=== PATIENT | male | born 1995 | race Caucasian/White ===

== ENCOUNTER 2016-06-15 13:02 | Emergency (ER) | payer BC ==
[~2016-06-15] VITALS: Ht 175.3 cm; Wt 83.5 kg
[2016-06-15 13:08] VITALS: TEMP 36.5; Ht 175.3 cm; Wt 83.5 kg
[2016-06-15 13:45] LABS: URINE APPEARANCE CLEAR (CLEAR); URINE BILIRUBIN NEG (NEG); URINE COLOR DK YELLOW; URINE NITRITE NEG (NEG); URINE PH 6.5 (4.5-7.5); URINE SPECIFIC GRAVITY 1.027 (1.000-1.030); UROBILINOGEN NEG (NEG); ZZUR CULT IF INDIC CLEAN CATCH NO
[2016-06-15 13:46] LABS: MANUAL MICROSCOPIC REQUIRED? NO; REVIEW REQ? NO
[2016-06-15 14:12] LABS: BENZODIAZEPINE, URINE NEG (NEG); COCAINE,URINE NEG (NEG); PHENCYCLIDINE, URINE NEG (NEG)
[2016-06-15 14:13] LABS: BASO % 0.5 %; BASO ABS # 0.03 K/uL (0-0.2); COMPLETE YES; HEMATOCRIT 44.2 % (42-52); IG% 0.2 %; LYMPH % 43.2 %; LYMPH ABS # 2.39 K/uL (1.2-3.4); MEAN CELL VOLUME 81.4 fL (80-100); MEAN CORPUSCULAR HEMOGLOBIN 27.8 pg (25-34); MEAN CORPUSCULAR HGB CONC 34.2 g/dl (32-36); MEAN PLATELET VOLUME 9.4 fL (7.4-10.4); MONO % 5.6 %; NEUT % 46.5 %; PLATELET COUNT 246 K/uL (130-400); RED BLOOD COUNT 5.43 M/uL (4.7-6.1); WHITE BLOOD COUNT 5.53 K/uL (4.8-10.8)
[2016-06-15] MEDS ORDERED: ESCI1TAB6 PO (14:19)
[2016-06-15] MEDS ORDERED: ALPR-411 PO (14:19)
[2016-06-15 14:27] LABS: BUN/CREATININE RATIO 11.7 (10-20); CALCIUM 9.6 mg/dl (8.5-10.1); CREATININE 0.86 mg/dl (0.60-1.40); POTASSIUM 3.8 mmol/L (3.5-5.1)
[2016-06-15 14:31] LABS: ACETAMINOPHEN < 2 ug/ml (10-30)
[2016-06-15 14:37] LABS: ALB/GLOB RATIO 1.4 (0.9-2); THYROID STIMULATING HORMONE 1.29 uIu/ml (0.300-4.500)
[2016-06-15] MEDS ORDERED: LORAZEPAM 1 MG TAB SL STA (15:23)
[2016-06-15 16:38] VITALS: BP 144/97; PULSE 68; O2SAT 97
--- NOTE | 2016-06-15 19:22 | EMERGENCY ROOM VISIT NOTE ---
History Report prepared by Keisha: Lj Omer Under the Supervision of: Dr. Murali Rogers M.D. First contact with patient: 14:19 Chief Complaint: MENTAL HEALTH EVALUATION Stated Complaint: SEVERE ANXIETY History of Present Illness The patient is a 20 year old male who presents to the Emergency Room with complaints of worsening anxiety over the past three days. The patients current anxiety started with the new at [employer]. He believes that the current episode of anxiety can be attributed to his use of Lexapro 5 mg over the past month. He stopped taking it last night. He didn't feel this way when he was on Zoloft. He had Xanax 0.25 mg at 1130 today, which did not help. The patient uses marijuana frequently, which he says helps with his anxiety. His last use of marijuana was last night. He denies alcohol use. The patient states that he has never been this anxious before. The patient says he is anxious about everything. The patient has experienced anxiety and depression for one year now. 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 The patient denies suicidal or homicidal ideations. He called his psychiatrist yesterday and today but did not receive a call back yet. Source of History: patient Onset: three days Position: other (psyche) Quality: other (anxious) Timing: worsening Modifying Factors (Relieving): other (marijuana) Note: Patient denies suicidal or homicidal ideation. Review of Systems See HPI for pertinent positives & negatives. A total of 10 systems reviewed and were otherwise negative. Past Medical & Surgical Medical Problems: (1) Anxiety and depression (2) Laceration of scalp Family History No pertinent family history Social History Smoking Status: Never Smoker Drug Use: marijuana Occupation Status: [employer] student Current/Historical Medications Scheduled Escitalopram Oxalate (Lexapro), 5 MG PO DAILY Miscellaneous Medications Alprazolam (Xanax), 0.25 MG PO Allergies Coded Allergies: No Known Allergies (Unverified , 06/15/16) Physical Exam Vital Signs Date Time Temp Pulse Resp B/P Pulse Ox O2 Delivery O2 Flow Rate FiO2 06/15/16 16:38 68 16 144/97 97 06/15/16 15:15 86 18 150/91 96 Room Air 06/15/16 13:08 36.5 75 18 139/100 97 Room Air Physical Exam Constitutional: Vital signs reviewed. Eyes: Pupils are equal round reactive to light. Conjunctiva are noninjected. ENT: Pharynx is clear without erythema or exudate. Mucous membranes are moist. Neck supple without meningeal signs. Respiratory: Clear to auscultation bilaterally. Breath sounds are equal bilaterally. Cardiovascular: Regular rate and rhythm. No rubs or gallops. GI: Soft, nondistended and nontender. Bowel sounds are present. Musculoskeletal: No peripheral edema. Integumentary: No cyanosis. Neurological: The patient is awake and alert. No focal deficits. Psychiatric: Very anxious. Medical Decision & Procedures Laboratory Results 06/15/16 13:49 Red Blood Count 5.43, Mean Corpuscular Volume 81.4, Mean Corpuscular Hemoglobin 27.8, Mean Corpuscular Hemoglobin Concent 34.2, Mean Platelet Volume 9.4, Neutrophils (%) (Auto) 46.5, Lymphocytes (%) (Auto) 43.2, Monocytes (%) (Auto) 5.6, Eosinophils (%) (Auto) 4.0, Basophils (%) (Auto) 0.5, Neutrophils # (Auto) 2.57, Lymphocytes # (Auto) 2.39, Monocytes # (Auto) 0.31, Eosinophils # (Auto) 0.22, Basophils # (Auto) 0.03 06/15/16 13:49 Test 06/15/16 13:24 06/15/16 13:49 Urine Color DK YELLOW Urine Appearance CLEAR (CLEAR) Urine pH 6.5 (4.5-7.5) Urine Specific [place] 1.027 (1.000-1.030) Urine Protein NEG (NEG) Urine Glucose (UA) NEG (NEG) Urine Ketones NEG (NEG) Urine Occult Blood NEG (NEG) Urine Nitrite NEG (NEG) Urine Bilirubin NEG (NEG) Urine Urobilinogen NEG (NEG) Urine Leukocyte Esterase SMALL (NEG) Urine WBC (Auto) 5-10 /hpf (0-5) Urine RBC (Auto) 0-4 /hpf (0-4) Urine Hyaline Casts (Auto) 5-10 /lpf (0-5) Urine Epithelial Cells (Auto) 10-20 /lpf (0-5) Urine Bacteria (Auto) NEG (NEG) Urine Opiates Screen NEG (NEG) Urine Methadone, Qualitative NEG (NEG) Urine Barbiturates NEG (NEG) Urine Phencyclidine (PCP) Level NEG (NEG) Ur Amphetamine/Methamphetamine NEG (NEG) MDMA (Ecstasy) Screen NEG (NEG) Urine Benzodiazepines Screen NEG (NEG) Urine Cocaine Metabolite NEG (NEG) Urine Marijuana (THC) POS (NEG) White Blood Count 5.53 K/uL (4.8-10.8) Red Blood Count 5.43 M/uL (4.7-6.1) Hemoglobin 15.1 g/dL (14.0-18.0) Hematocrit 44.2 % (42-52) Mean Corpuscular Volume 81.4 fL (80-100) Mean Corpuscular Hemoglobin 27.8 pg (25-34) Mean Corpuscular Hemoglobin Concent 34.2 g/dl (32-36) Platelet Count 246 K/uL (130-400) Mean Platelet Volume 9.4 fL (7.4-10.4) Neutrophils (%) (Auto) 46.5 % Lymphocytes (%) (Auto) 43.2 % Monocytes (%) (Auto) 5.6 % Eosinophils (%) (Auto) 4.0 % Basophils (%) (Auto) 0.5 % Neutrophils # (Auto) 2.57 K/uL (1.4-6.5) Lymphocytes # (Auto) 2.39 K/uL (1.2-3.4) Monocytes # (Auto) 0.31 K/uL (0.11-0.59) Eosinophils # (Auto) 0.22 K/uL (0-0.5) Basophils # (Auto) 0.03 K/uL (0-0.2) RDW Standard Deviation 38.1 fL (36.4-46.3) RDW Coefficient of Variation 12.8 % (11.5-14.5) Immature Granulocyte % (Auto) 0.2 % Immature Granulocyte # (Auto) 0.01 K/uL (0.00-0.02) Anion Gap 9.0 mmol/L (3-11) Est Creatinine Clear Calc Drug Dose 138.2 ml/min Estimated GFR () 145.7 Estimated GFR (Non- 125.7 BUN/Creatinine Ratio 11.7 (10-20) Calcium Level 9.6 mg/dl (8.5-10.1) Total Bilirubin 0.8 mg/dl (0.2-1) Aspartate Amino Transf (AST/SGOT) 24 U/L (15-37) Alanine Aminotransferase (ALT/SGPT) 23 U/L (12-78) Alkaline Phosphatase 47 U/L (45-117) Total Protein 7.1 gm/dl (6.4-8.2) Albumin 4.1 gm/dl (3.4-5.0) Globulin 3.0 gm/dl (2.5-4.0) Albumin/Globulin Ratio 1.4 (0.9-2) Thyroid Stimulating Hormone (TSH) 1.290 uIu/ml (0.300-4.500) Salicylates Level < 1.7 mg/dl (2.8-20) Acetaminophen Level < 2 ug/ml (10-30) Ethyl Alcohol mg/dL < 3.0 mg/dl (0-3) Laboratory results as reviewed by me. Medications Administered Medications (Trade) Dose Ordered Sig/Uma Route Start Time Stop Time Status Last Admin Dose Admin Lorazepam (Ativan Tab) 1 mg NOW STAT SL 06/15/16 15:23 06/15/16 15:24 DC 06/15/16 15:30 1 MG ED Course 1450: The patient was evaluated in room C2b. A complete history and physical exam was performed. 1523: Ativan 1 mg SL. 1600: Reassessed the patient. He is feeling better and would like to go home. He will follow up next week. The patient is ready for discharge. Medical Decision This is a 20-year-old male who presents with severe anxiety. I did perform a limited focused review of portions of the patient's old chart on the electronic medical record. The patient has had no recent pertinent visits to this hospital. I did evaluate the patient as noted above. He is presenting with significant anxiety after starting the semester at school today. He has had a history of anxiety following a head injury about a year ago. He is prescribed Lexapro and Xanax by his psychiatrist. He did not have relief with Xanax today and presented here. He did stop taking his Lexapro yesterday because he thinks it might be contributing to his anxiety. I advised him not to stop taking his Lexapro until he spoke to his psychiatrist. I did treat the patient with Ativan 1 mg orally. I did review the patient's blood work as noted in the electronic medical record. I did review his urine drug screen which shows marijuana. The mental health block and case maker did evaluate the patient. He does not meet any criteria for hospitalization. She did give him referrals for a local psychiatrist and counselor. The patient stated he felt better on reexamination and wanted to go home. He stated that being in the ED made him more anxious. He was therefore discharged in good condition. Impression Primary Impression: Anxiety Scribe Attestation The scribe's documentation has been prepared under my direct and personally reviewed by me in its entirety. I confirm that the note above accurately reflects all work, treatment, procedures, and medical decision making performed by me. Departure Information Dispostion Home / Self-Care Referrals No Doctor, Assigned (PCP) Forms HOME CARE DOCUMENTATION FORM, IMPORTANT VISIT INFORMATION Patient Instructions A Signature Page, Alprazolam Oral tablet, Anxiety Body Response, My [facility] Additional Instructions You have been examined and treated today on an emergency basis only. This is not a substitute for, or an effort to provide, complete comprehensive medical care. It is impossible to recognize and treat all injuries or illnesses in a single emergency department visit. It is therefore important that you follow up closely with your psychiatrist and the counselor that the step finisher referred you to. Call as soon as possible for an appointment. Return for worsening symptoms or if you develop thoughts of hurting yourself or others, or any other concerning symptoms.
== END 2016-06-15 16:39 | disposition home or self-care (01) ==
LOC: C.EDB 13:03 → C.EDA 16:39
DX: F41.9 Anxiety disorder, unspecified (principal); F12.10 Cannabis abuse, uncomplicated; F32.9 Major depressive disorder, single episode, unspecified; Z79.899 Other long term (current) drug therapy

== ENCOUNTER 2016-07-03 01:00 | Emergency (ER) | payer BC ==
[~2016-07-03] VITALS: Ht 177.8 cm; Wt 72.1 kg
[~2016-07-03 01:00] MED LIST: ALPR-411 PO; ESCI1TAB6 PO
[2016-07-03 01:14] VITALS: Ht 177.8 cm; Wt 72.1 kg
[2016-07-03] MEDS ORDERED: OXYCODONE IR HOME PACK PO ONE (01:30)
[2016-07-03] MEDS ORDERED: OXYC1TAB3 PO (01:31)
[2016-07-03 01:51] VITALS: BP 126/78; PULSE 81; TEMP 36.3; O2SAT 95
--- NOTE | 2016-07-03 03:54 | EMERGENCY ROOM VISIT NOTE ---
ED Visit Note First contact with patient: 01:19 CHIEF COMPLAINT: Medication request HISTORY OF PRESENT ILLNESS: This 21 yo patient presents to the emergency department requesting pain medication for his ankle fracture. Dr. Posadas did not dispense any pain meds and had x-rays done at [facility]. He saw Dr. Posadas yesterday was placed in a walking boot for a fibula fracture that is distal. Patient states Motrin and Tylenol are not helping. Patient denies numbness, tingling, fever, chills. He is requesting a short supply pain meds and describes the pain as aching, ranging in severity 8 out of 10. Nothing makes it better or worse. It does not radiate. The patient denies any other complaints. REVIEW OF SYSTEMS: A 6 system review of systems was completed with positives and pertinent negatives listed in the HPI. ALLERGIES: none MEDICATIONS: none PMH: none SOCIAL HISTORY: no drug use PHYSICAL EXAM: VITALS: Vitals are noted on the nurse's note and reviewed by myself. Vital signs stable. GENERAL: pleasant male, in no acute distress, nondiaphoretic, well-developed well-nourished. EMERGENCY DEPARTMENT COURSE: I examined the patient. The patient has an acute ankle fracture and was not given pain meds. He was looked up in the [email or web address] drug monitoring system and has no narcotics dispensed. He was given a short supply of pain meds and advised to see Dr. Posadas as scheduled this for further evaluation and treatment or here in the ER sooner for severe pain, numbness, tingling, worsening signs or symptoms or as needed. DIAGNOSIS: Right ankle fracture DISCHARGE INSTRUCTIONS & TREATMENT: As below Problem List Medical Problems: (1) Anxiety and depression Status: Chronic (2) Laceration of scalp Status: Resolved Current/Historical Medications Scheduled Escitalopram Oxalate (Lexapro), 5 MG PO DAILY Scheduled PRN Alprazolam (Xanax), 0.25 MG PO DAILY PRN for Anxiety Oxycodone Immediate Rel Tab (Roxicodone Ir), 1-2 TAB PO Q4H PRN for Severe Pain Allergies Coded Allergies: No Known Allergies (Unverified , 07/03/16) Vital Signs Date Time Temp Pulse Resp B/P Pulse Ox O2 Delivery O2 Flow Rate FiO2 07/03/16 01:51 36.3 81 18 126/78 95 07/03/16 01:49 81 18 126/78 95 Room Air 07/03/16 01:14 36.3 89 18 138/84 94 Room Air Medications Administered Medications (Trade) Dose Ordered Sig/Uma Route Start Time Stop Time Status Last Admin Dose Admin Oxycodone HCl (Roxicodone Immediate Rel 5MG Home Pack) 1 homepack UD ONCE PO 07/03/16 01:30 07/03/16 01:31 DC 07/03/16 01:37 1 HOMEPACK Departure Information Impression Primary Impression: Closed right ankle fracture Dispostion Home / Self-Care Condition GOOD Prescriptions Oxycodone Immediate Rel Tab (ROXICODONE IR) 5 Mg Tab 1-2 TAB PO Q4H Y for Severe Pain, #20 TAB initial Prov: Emilie Villagran PA-C 07/03/16 Referrals No Doctor, Assigned [facility] (PCP) Forms HOME CARE DOCUMENTATION FORM, IMPORTANT VISIT INFORMATION Patient Instructions My [facility] Additional Instructions DO NOT drive, drink alcohol, operate machinery, or perform dangerous activities today. You were given medications in the ER that can affect your ability to safely function or operate a vehicle. Oxycodone (OxyIR) 5mg: Take 1-2 pills every four hours for breakthrough pain. Avoid alcohol, operating machinery or dangerous equipment, working on ladders or roofs, DRIVING, or situations where being under the influence may be dangerous. It is recommended to use an [id number] stool softener such as Colace, 100mg twice daily while taking this medication to avoid constipation. Ibuprofen(Motrin, Advil) may be used for fever or pain. Use 600mg every six hours as needed. Take with food. Avoid using more than 2400mg in a 24 hour period. Do not use 2400mg per day for more than three consecutive days without physician direction. Prolonged inappropriate use can lead to stomach upset or ulcers. This medication can be taken if you need to drive, work, or perform activities which may be dangerous when taking narcotic pain medication. (AND/OR) Acetaminophen(Tylenol) may be used for fever or pain. Use 1000mg every six hours as needed. Avoid using more than 3000mg in a 24 hour period. This medication can be taken if you need to drive, work, or perform activities which may be dangerous when taking narcotic pain medication. Ice compresses for 20 minutes at a time four times daily for 2-3 days. Rest and elevate your injury. Wear your walking boot as instructed by Dr. Posadas. Continue current medications. Return to the ER immediately for any numbness, tingling, severe pain, extreme swelling in the extremity or as needed. Follow up with your Orthopedics this week as scheduled to arrange follow up for your injury.
== END 2016-07-03 01:53 | disposition home or self-care (01) ==
LOC: C.EDB 01:01 → C.EDC 01:53
DX: S82.891A Other fracture of right lower leg, initial encounter for closed fracture (principal); X58.XXXA Exposure to other specified factors, initial encounter; F41.9 Anxiety disorder, unspecified; F32.9 Major depressive disorder, single episode, unspecified